=== PATIENT | female | born 1980 | race Native Hawaiian/Other Pacific Islander ===

== ENCOUNTER 2017-04-18 11:25 | Emergency (ER) | payer OTHER ==
[2017-04-18 11:26] VITALS: BMI 19.9
[2017-04-18 11:32] VITALS: BP 114/87; PULSE 75; RESP 18; TEMP 97; O2SAT 99
--- NOTE | 2017-04-18 11:42 | ED PDOC ---
HPI: Skin/Bite Injury Time Seen by Provider: 04/18/17 11:37 Chief Complaint (Nursing): Needle Stick Chief Complaint (Provider): needle stick History Per: Patient History/Exam Limitations: no limitations Onset/Duration Of Symptoms: Mins (x 15) Additional Complaint(s): David Cha is a 37 year old female, with no previous medical history, who presents to the ED for evaluation after accidentally sticking her right thumb with a suture needle 15 minutes prior to arrival. Patient reports hepatitis immunizations are up to date. PMD: none provided Past Medical History Reviewed: Historical Data, Nursing Documentation, Vital Signs Vital Signs: Last Vital Signs Temp 97 F L 04/18/17 11:29 Pulse 75 04/18/17 11:29 Resp 18 04/18/17 11:29 BP 114/87 04/18/17 11:29 Pulse Ox 99 04/18/17 11:44 - Medical History PMH: No Chronic Diseases - Family History Family History: States: Unknown Family Hx - Immunization History Hx Tetanus Toxoid Vaccination: Yes Hx Influenza Vaccination: No Hx Pneumococcal Vaccination: No - Home Medications Home Medications: Ambulatory Orders Medication Instructions Recorded Bacitracin 1 appl TP BID #15 g 07/05/16 Emtricitabine/Tenofovir Diso 1 tab PO DAILY #30 tab 07/05/16 [Truvada 200 MG-300 MG] Ondansetron ODT [Zofran ODT] 4 mg PO TID PRN #12 odt 07/05/16 Raltegravir Potassium [Isentress] 400 mg PO BID #60 tab 07/05/16 - Allergies Allergies/Adverse Reactions: Allergies Allergy/AdvReac Type Severity Reaction Status Date / Time No Known Allergies Allergy Verified 07/05/16 14:20 Review of Systems ROS Statement: Except As Marked, All Systems Reviewed And Found Negative Skin: Positive for: Other (puncture wound righ thumb ) Physical Exam - Reviewed Nursing Documentation Reviewed: Yes Vital Signs Reviewed: Yes - Physical Exam Appears: Positive for: Well, Non-toxic, No Acute Distress Skin: Positive for: Normal Color, Warm, Dry Cardiovascular/Chest: Positive for: Regular Rate, Rhythm Respiratory: Positive for: CNT, Normal Breath Sounds Extremity: Positive for: Normal ROM, Other (small puncture wound to the right thumb ). Negative for: Tenderness, Deformity, Swelling Neurologic/Psych: Positive for: Alert, Oriented - ECG O2 Sat by Pulse Oximetry: 99 (RA) Pulse Ox Interpretation: Normal Medical Decision Making Medical Decision Making: Initial Plan: * rapid HIV * hepatitis panel * reevaluation Scribe Attestation: Documented by Poppy Joe, acting as a scribe for Yandel Rodas MD. Provider Scribe Attestation: All medical record entries made by the Scribe were at my direction and personally dictated by me. I have reviewed the chart and agree that the record accurately reflects my personal performance of the history, physical exam, medical decision making, and the department course for this patient. I have also personally directed, reviewed, and agree with the discharge instructions and disposition. Disposition - Clinical Impression Clinical Impression: Needle stick injury - Patient ED Disposition Is Patient to be Admitted: No - Disposition Disposition: Routine/Home Disposition Time: 14:17 Condition: FAIR Additional Instructions: Follow up employee health Instructions: Needle Stick Injuries (ED) Forms: Glad to Have You ([place]an)
== END 2017-04-18 14:21 | disposition home or self-care (01) ==
LOC: H.ER 11:25
DX: T14.8 Other injury of unspecified body region (principal); W46.0XXA Contact with hypodermic needle, initial encounter; Y99.0 Civilian activity done for income or pay